=== PATIENT | male | born 1985 | race Caucasian/White ===

== ENCOUNTER 2019-09-28 16:59 | Emergency (ER) | payer OTHER ==
[2019-09-28 17:06] VITALS: BP 105/76; PULSE 76; TEMP 99.2; BMI 25.8
--- NOTE | 2019-09-28 17:06 | PDOC ---
Rapid Medical Evaluation Chief Complaint: Diarrhea Time Seen by Provider: 09/28/19 17:02 Medical Evaluation: 09/28/19 17:04 HPI: COVID-19 CDC guideline data points: The patient is a 34yo M presents with exposure to COVID-19 with associated symptoms of diarrhea, complicated by this/these comorbidities: none. ROS: NEGATIVE: difficulty breathing, shortness of breath, chest pain, lightheadedness, dizziness, nausea, vomiting and diarrhea. Other 12 point ROS reviewed and negative. Exam: General: NAD, Well-Appearing, Awake, Alert Oriented x3. Vital signs stable. ENT: No rhinorrhea or nasal congestion. Neck: FROM, no midline tenderness. Lungs: Clear to auscultation bilaterally without wheezes, rhonchi or rales. Normal excursion. Patient is able to speak in full sentences. Heart: HR: 72. Regular rhythm, S1-S2 present, no murmurs rubs or gallops. Abdomen: Non-distended. MSK/Extremities: No decrease ROM, No obvious deformities. No obvious cyanosis noted. Neuro: Normal Gait, Cranial Nerves II through XII Grossly Intact. Skin: No obvious rashes, bruising. Color Normal Appearing. Assessment/Plan: diarrhea Patient has a history of this/these comorbidities: none, denies recent travel and known COVID exposure. Patient does meet testing criteria at this time. ASSESSMENT: Denies recent travel and known Covid exposure. Treatment: Covid testing Discharge Discharge Disposition - Diagnosis Exposure to COVID-19 virus Diarrhea Qualifiers: Diarrhea type: unspecified type Qualified Code(s): R19.7 - Diarrhea, unspecified - Discharge Dispostion Disposition: HOME Condition at time of disposition: Stable Decision to Admit order: No - Referrals - Patient Instructions Printed Discharge Instructions: [facility] Inst[facility], [facility] COVID-19 Isolation Protocol Additional Instructions: You were seen for your cough and possible Coronavirus (COVID-19) Take Tylenol 650 mg every 6 hours as needed for fever or pain. You may take Robitussin or other [id number] cough syrup. Follow the dosing instructions on the bottle. Warm tea, honey, and salt water gargles may help your symptoms. Please take precautions and self quarantine for 2 weeks and follow-up with your primary care doctor and the Department of Health. Return to the nearest emergency department for shortness of breath, difficulty breathing, chest pain, or if you have any changes in your symptoms. - Post Discharge Activity Work/School Note: Back to Work
== END 2019-09-28 17:21 | disposition home or self-care (01) ==
LOC: JER 16:59
DX: R19.7 Diarrhea, unspecified (principal)
CPT/HCPCS: 99283-25; U0003

== ENCOUNTER 2021-02-19 20:58 | Emergency (ER) | payer OTHER | END 2021-02-19 21:15 | disposition home or self-care (01) | LOC: JVIRT 20:58 | DX: U07.1 COVID-19 (principal) | CPT/HCPCS: C9803; Q3014-GT; U0003; U0005 ==

== ENCOUNTER 2023-05-09 16:49 | Emergency (ER) | payer OTHER ==
[2023-05-09 16:55] VITALS: BP 117/71; PULSE 100; RESP 18; TEMP 98.5; BMI 25.8
[2023-05-09] MEDS: IBUPROFEN 600 MG TABLET (FP) PO ONE (17:39)
[2023-05-09] MEDS ORDERED: IBUPROFEN 600 MG TABLET (FP) PO ONE (17:39)
== END 2023-05-09 17:42 | disposition home or self-care (01) ==
LOC: JERFT 16:49
DX: R05.9 Cough, unspecified (principal); J02.9 Acute pharyngitis, unspecified; J06.9 Acute upper respiratory infection, unspecified; Z20.822 Contact with and (suspected) exposure to COVID-19
CPT/HCPCS: 0241U-QW; 99283-25

== ENCOUNTER 2023-06-10 17:07 | Emergency (ER) | payer OTHER ==
[2023-06-10 17:35] VITALS: BP 136/68; PULSE 82; RESP 18; TEMP 98; BMI 25.8
[2023-06-10] MEDS ORDERED: ACETAMINOPHEN 500 MG TABLET (FP) ONE (18:01)
[2023-06-10] MEDS ORDERED: IBUPROFEN 400 MG TABLET (FP) PO ONE (18:01)
[2023-06-10] MEDS: IBUPROFEN 400 MG TABLET (FP) PO ONE (18:02)
[2023-06-10] MEDS: ACETAMINOPHEN 500 MG TABLET (FP) PO ONE (18:02)
== END 2023-06-10 18:34 | disposition home or self-care (01) ==
LOC: JERFT 17:07
DX: S93.401A Sprain of unspecified ligament of right ankle, initial encounter (principal); X50.1XXA Overexertion from prolonged static or awkward postures, initial encounter
CPT/HCPCS: 73610-TC-RT-FY; 73630-TC-RT-FY; 99283-25

== ENCOUNTER 2024-02-17 16:30 | Emergency (ER) | payer OTHER ==
[2024-02-17 17:03] VITALS: BP 106/76; PULSE 69; RESP 18; TEMP 98.4; BMI 27.2
[2024-02-17] MEDS ORDERED: ACETAMINOPHEN INJECTION 100 ML ONE (18:00)
[2024-02-17] MEDS: ACETAMINOPHEN 1000 MG/100 ML BAG IVPB ONE (18:04)
[2024-02-17] MEDS: SODIUM CHLORIDE 0.9% 500 ML INFUS.BAG IV ONE (18:04)
[2024-02-17] MEDS ORDERED: ONDANSETRON *ODT* 4 MG TABLET ONE (18:11)
[2024-02-17] MEDS: ONDANSETRON *ODT* 4 MG TABLET SL ONE (18:14)
== END 2024-02-17 18:23 | disposition home or self-care (01) ==
LOC: JER 16:30
DX: A08.4 Viral intestinal infection, unspecified (principal); R11.0 Nausea
CPT/HCPCS: 99283-25; Q0162